=== PATIENT | female | born 1945 | race Caucasian/White ===

== ENCOUNTER 2018-01-16 08:51 | Observation (INO) | payer MEDICARE, OTHER ==
[2018-01-16] MEDS ORDERED: hydrALAzine 20 MG INJ IV (09:00)
[2018-01-16 09:19] LABS: ADD MAN DIFF? NO
[2018-01-16 09:21] LABS: WHITE BLOOD COUNT 6.6 10^3/ul (4.8-10.8)
[2018-01-16 09:21] LABS: BASOPHIL # 0.1 10^3/ul (0.0-0.1); BASOPHILS % 0.9 % (0.0-2.0); EOSINOPHILS # 0.5 10^3/ul (0.0-0.5); EOSINOPHILS % 7.5 % (0.0-7.0); HEMATOCRIT 41.2 % (37.0-47.0); HEMOGLOBIN 13.9 g/dl (12.0-16.0); LYMPHOCYTES # 2.7 10^3/ul (0.8-2.9); LYMPHOCYTES % 41.2 % (15.0-51.0); MEAN CORPUSCULAR HEMOGLOBIN 29.9 pg (29.0-33.0); MEAN CORPUSCULAR HGB CONC 33.7 g/dl (32.0-37.0); MEAN CORPUSCULAR VOLUME 88.6 fl (82.0-101.0); MEAN PLATELET VOLUME 9.9 fl (7.4-10.4); MONOCYTE # 0.5 10^3/ul (0.3-0.9); MONOCYTES % 6.9 % (0.0-11.0); NEUTROPHIL # 2.9 10^3/ul (1.6-7.5); NEUTROPHILS % 43.2 % (39.0-77.0); PLATELET COUNT 217 10^3/UL (140-415); RED BLOOD COUNT 4.65 10^6/ul (4.20-5.40); RED CELL DISTRIBUTION WIDTH 12.7 % (11.5-14.5)
[2018-01-16 09:40] LABS: ALANINE AMINOTRANSFERASE 18 IU/L (13-69); ALBUMIN 4.3 g/dl (3.3-4.9); ALBUMIN/GLOBULIN RATIO 1.38; ALKALINE PHOSPHATASE 89 IU/L (42-121); AMYLASE 146 U/L (11-123); ANION GAP 12 (8-16); ASPARTATE AMINO TRANSFERASE 22 IU/L (15-46); BILIRUBIN,INDIRECT 0.3 mg/dl (0-1.1); BILIRUBIN,TOTAL 0.3 mg/dl (0.2-1.3); BLOOD UREA NITROGEN 12 mg/dl (7-20); CALCIUM 9.3 mg/dl (8.4-10.2); CARBON DIOXIDE 23 mmol/L (21-31); CHLORIDE 107 mmol/L (97-110); CREATININE 0.51 mg/dl (0.44-1.00); GLUCOSE 198 mg/dl (70-220); LIPASE 330 U/L (23-300); POTASSIUM 4.4 mmol/L (3.5-5.1); SODIUM 138 mmol/L (135-144); TOTAL PROTEIN 7.4 g/dl (6.1-8.1)
[2018-01-16 09:43] LABS: INR 0.82; PROTIME 11.4 Sec (11.9-14.9); PT RATIO 0.9
[2018-01-16 09:52] LABS: TROPONIN-I < 0.010 ng/ml (0.000-0.120)
[2018-01-16] MEDS: LORAZEPAM 2 MG INJ IV (09:58)
[2018-01-16] MEDS: ONDANSETRON 4 MG INJ IV ×2 (09:58→13:31)
[2018-01-16] MEDS: SOD CHLORIDE 0.9% 1,000 ML IV (09:58)
[2018-01-16] MEDS: METOCLOPRAMIDE 10 MG INJ IV (10:57)
[2018-01-16] MEDS ORDERED: NACL 0.9% 3 ML SYG IV (12:00)
[2018-01-16] MEDS ORDERED: ONDANSETRON 4 MG INJ IV ×2 (12:00)
[2018-01-16] MEDS ORDERED: ACETAMINOPHEN 325 MG TAB PO ×2 (12:00)
[2018-01-16] MEDS: INSULIN ASPART [NOVOLOG] 3 ML PEN SC ×3 (14:34→21:00)
[2018-01-16] MEDS ORDERED: HYDROCODONE/APAP (5/325) TAB PO (15:00)
[2018-01-16 15:07] LABS: CREATINE KINASE 51 IU/L (23-200)
[2018-01-16 15:20] LABS: CK INDEX 8.1; CK-MB 4.13 ng/ml (0.0-2.4); TROPONIN-I < 0.010 ng/ml (0.000-0.120)
[2018-01-16] MEDS ORDERED: DEXTROSE 50% 50 ML SYRINGE IV ×2 (15:30)
[2018-01-16] MEDS ORDERED: GLUCOSE GEL 15 GRAM TUBE BUCCAL (15:30)
[2018-01-16] MEDS ORDERED: GLUCAGON 1 MG INJ IM (15:30)
[2018-01-16] MEDS ORDERED: GLUCOSE GEL 15 GRAM TUBE PO ×2 (15:30)
[2018-01-16] MEDS: BENAZEPRIL 40 MG TAB PO (16:08)
[2018-01-16] MEDS: INSULIN GLARGINE [LANTus] (100 UNITS/ML) SYG SC (20:00)
[2018-01-16] MEDS: ALPRAZOLAM 0.25 MG TAB PO (21:01)
[2018-01-16] MEDS: GABAPENTIN 100 MG CAP PO (21:01)
[2018-01-16] MEDS: ATORVASTATIN 20 MG TAB PO (21:01)
[2018-01-16] MEDS: DICLOFENAC (EC) 25 MG TAB PO (21:01)
[2018-01-16 22:58] LABS: CREATINE KINASE 42 IU/L (23-200)
[2018-01-16 23:09] LABS: CK-MB 3.77 ng/ml (0.0-2.4); TROPONIN-I < 0.010 ng/ml (0.000-0.120)
[2018-01-17] MEDS: ACCU-CHEK XX (02:00)
[2018-01-17 06:24] LABS: ADD MAN DIFF? NO
[2018-01-17 06:30] LABS: BASOPHIL # 0.1 10^3/ul (0.0-0.1); BASOPHILS % 0.8 % (0.0-2.0); EOSINOPHILS # 0.4 10^3/ul (0.0-0.5); EOSINOPHILS % 4.7 % (0.0-7.0); HEMATOCRIT 38.8 % (37.0-47.0); HEMOGLOBIN 12.7 g/dl (12.0-16.0); LYMPHOCYTES # 2.7 10^3/ul (0.8-2.9); LYMPHOCYTES % 31.4 % (15.0-51.0); MEAN CORPUSCULAR HGB CONC 32.7 g/dl (32.0-37.0); MEAN CORPUSCULAR VOLUME 88.6 fl (82.0-101.0); MEAN PLATELET VOLUME 10.2 fl (7.4-10.4); MONOCYTE # 0.5 10^3/ul (0.3-0.9); MONOCYTES % 5.8 % (0.0-11.0); NEUTROPHIL # 4.9 10^3/ul (1.6-7.5); NEUTROPHILS % 57.2 % (39.0-77.0); PLATELET COUNT 213 10^3/UL (140-415); RED BLOOD COUNT 4.38 10^6/ul (4.20-5.40); RED CELL DISTRIBUTION WIDTH 12.9 % (11.5-14.5)
[2018-01-17 06:30] LABS: WHITE BLOOD COUNT 8.5 10^3/ul (4.8-10.8)
[2018-01-17 06:41] LABS: HEMOGLOBIN A1C 8.1 % (0-5.9)
[2018-01-17 06:55] LABS: ANION GAP 11 (8-16); BLOOD UREA NITROGEN 12 mg/dl (7-20); CALCIUM 8.9 mg/dl (8.4-10.2); CARBON DIOXIDE 28 mmol/L (21-31); CHLORIDE 106 mmol/L (97-110); CHOL/HDL RATIO 5.4 RATIO; CHOLESTEROL 208 mg/dl (100-200); CREATININE 0.66 mg/dl (0.44-1.00); GLUCOSE 94 mg/dl (70-220); HDL CHOLESTEROL 38 mg/dl (33-92); LDL CHOLESTEROL,CALCULATED 130 mg/dl; MAGNESIUM 2.2 mg/dl (1.7-2.5); PHOSPHORUS 4.3 mg/dl (2.5-4.9); POTASSIUM 4.2 mmol/L (3.5-5.1); SODIUM 141 mmol/L (135-144); TRIGLYCERIDES 198 mg/dl (0-149)
[2018-01-17] MEDS: INSULIN ASPART [NOVOLOG] 3 ML PEN SC ×2 (08:00→12:28)
[2018-01-17] MEDS: GABAPENTIN 100 MG CAP PO ×2 (09:27→12:23)
[2018-01-17] MEDS: ASPIRIN 81 MG TAB PO (09:27)
[2018-01-17] MEDS: ALPRAZOLAM 0.25 MG TAB PO (09:27)
[2018-01-17] MEDS: BENAZEPRIL 40 MG TAB PO (09:27)
[2018-01-17] MEDS: DICLOFENAC (EC) 25 MG TAB PO (09:27)
== END 2018-01-17 15:36 | disposition home or self-care (01) ==
LOC: E/R 08:51 → 6WM 11:34
DX: I16.0 Hypertensive urgency (principal); F41.0 Panic disorder [episodic paroxysmal anxiety]; F41.9 Anxiety disorder, unspecified; R55 Syncope and collapse; I10 Essential (primary) hypertension; E78.5 Hyperlipidemia, unspecified; E11.40 Type 2 diabetes mellitus with diabetic neuropathy, unspecified; I77.9 Disorder of arteries and arterioles, unspecified
CPT/HCPCS: 36415; 70450; 74176; 80048; 80053; 80061; 82150; 82550; 82553; 82962; 83036; 83690; 83735; 84100; 84443; 84484; 85025; 85610; 85730; 93005; 93306; 93880; 96374; 96375; 99217; 99285-25; G0378

== ENCOUNTER 2018-08-02 23:57 | Emergency (ER) | payer MEDICARE, OTHER ==
[2018-08-03 00:50] LABS: ADD MAN DIFF? NO
[2018-08-03] MEDS: ONDANSETRON 4 MG INJ IV ×2 (00:51→03:12)
[2018-08-03] MEDS: METOCLOPRAMIDE 10 MG INJ IV (00:51)
[2018-08-03 00:52] LABS: BASOPHIL # 0.1 10^3/ul (0.0-0.1); BASOPHILS % 0.8 % (0.0-2.0); EOSINOPHILS # 0.4 10^3/ul (0.0-0.5); EOSINOPHILS % 4.2 % (0.0-7.0); HEMATOCRIT 40.2 % (37.0-47.0); HEMOGLOBIN 13.3 g/dl (12.0-16.0); LYMPHOCYTES # 1.6 10^3/ul (0.8-2.9); LYMPHOCYTES % 18.3 % (15.0-51.0); MEAN CORPUSCULAR HEMOGLOBIN 29.2 pg (29.0-33.0); MEAN CORPUSCULAR HGB CONC 33.1 g/dl (32.0-37.0); MEAN CORPUSCULAR VOLUME 88.2 fl (82.0-101.0); MEAN PLATELET VOLUME 10.1 fl (7.4-10.4); MONOCYTE # 0.4 10^3/ul (0.3-0.9); NEUTROPHIL # 6.5 10^3/ul (1.6-7.5); NEUTROPHILS % 72.6 % (39.0-77.0); PLATELET COUNT 193 10^3/UL (140-415); RED BLOOD COUNT 4.56 10^6/ul (4.20-5.40); RED CELL DISTRIBUTION WIDTH 12.4 % (11.5-14.5)
[2018-08-03 00:52] LABS: WHITE BLOOD COUNT 8.9 10^3/ul (4.8-10.8)
[2018-08-03] MEDS: ACETAMINOPHEN 325 MG TAB PO (00:52)
[2018-08-03] MEDS: SOD CHLORIDE 0.9% 500 ML IV (00:52)
[2018-08-03 01:13] LABS: INR 0.91; PARTIAL THROMBOPLASTIN TIME 25.5 Sec (23.0-35.0); PROTIME 12.4 Sec (11.9-14.9)
[2018-08-03 01:15] LABS: ANION GAP 10 (5-13); BLOOD UREA NITROGEN 14 mg/dl (7-20); CALCIUM 9.6 mg/dl (8.4-10.2); CARBON DIOXIDE 24 mmol/L (21-31); CHLORIDE 102 mmol/L (97-110); CREATININE 0.54 mg/dl (0.44-1.00); GLUCOSE 291 mg/dl (70-220); POTASSIUM 3.9 mmol/L (3.5-5.1); SODIUM 136 mmol/L (135-144)
[2018-08-03] MEDS: KETOROLAC 15 MG INJ IV (03:12)
[2018-08-03 03:27] LABS: TROPONIN-I < 0.012 ng/ml (0.000-0.120)
[2018-08-03 03:39] LABS: ALANINE AMINOTRANSFERASE 21 IU/L (13-69); ALBUMIN 4.3 g/dl (3.3-4.9); ALKALINE PHOSPHATASE 93 IU/L (42-121); ASPARTATE AMINO TRANSFERASE 24 IU/L (15-46); BILIRUBIN,INDIRECT 0.1 mg/dl (0-1.1); BILIRUBIN,TOTAL 0.1 mg/dl (0.2-1.3); LIPASE 467 U/L (23-300); TOTAL PROTEIN 7.1 g/dl (6.1-8.1)
== END 2018-08-03 05:22 | disposition home or self-care (01) ==
LOC: E/R 23:57
DX: I10 Essential (primary) hypertension (principal); R11.2 Nausea with vomiting, unspecified; E11.65 Type 2 diabetes mellitus with hyperglycemia; Z79.82 Long term (current) use of aspirin; Z79.84 Long term (current) use of oral hypoglycemic drugs
CPT/HCPCS: 36415; 71045; 80048; 80076; 83690; 84484; 85025; 85610; 85730; 93005; 96374; 96375; 96376; 99285-25

== ENCOUNTER 2018-09-20 11:46 | Emergency (ER) | payer MEDICARE, OTHER ==
[2018-09-20] MEDS ORDERED: IODIXANOL LOCM 100 ML BTL (12:05)
[2018-09-20] MEDS ORDERED: SOD CHLORIDE 0.9% 100 ML (12:05)
[2018-09-20] MEDS: METOCLOPRAMIDE 10 MG INJ IV (12:07)
[2018-09-20] MEDS: DIPHENHYDRAMINE 50 MG INJ IV (12:25)
[2018-09-20 12:39] LABS: ADD MAN DIFF? NO
[2018-09-20 12:41] LABS: BASOPHIL # 0.1 10^3/ul (0.0-0.1); BASOPHILS % 0.7 % (0.0-2.0); EOSINOPHILS # 0.6 10^3/ul (0.0-0.5); EOSINOPHILS % 6.8 % (0.0-7.0); HEMATOCRIT 35.7 % (37.0-47.0); LYMPHOCYTES # 2.6 10^3/ul (0.8-2.9); LYMPHOCYTES % 28.2 % (15.0-51.0); MEAN CORPUSCULAR HEMOGLOBIN 29.6 pg (29.0-33.0); MEAN CORPUSCULAR HGB CONC 33.6 g/dl (32.0-37.0); MEAN CORPUSCULAR VOLUME 87.9 fl (82.0-101.0); MEAN PLATELET VOLUME 9.8 fl (7.4-10.4); MONOCYTE # 0.5 10^3/ul (0.3-0.9); MONOCYTES % 5.9 % (0.0-11.0); NEUTROPHIL # 5.4 10^3/ul (1.6-7.5); NEUTROPHILS % 58.1 % (39.0-77.0); PLATELET COUNT 178 10^3/UL (140-415); RED BLOOD COUNT 4.06 10^6/ul (4.20-5.40); RED CELL DISTRIBUTION WIDTH 12.8 % (11.5-14.5)
[2018-09-20 12:41] LABS: WHITE BLOOD COUNT 9.2 10^3/ul (4.8-10.8)
[2018-09-20 12:58] LABS: ANION GAP 6 (5-13); BLOOD UREA NITROGEN 16 mg/dl (7-20); CALCIUM 8.9 mg/dl (8.4-10.2); CARBON DIOXIDE 24 mmol/L (21-31); CHLORIDE 106 mmol/L (97-110); CREATININE 0.51 mg/dl (0.44-1.00); GLUCOSE 249 mg/dl (70-220); POTASSIUM 3.7 mmol/L (3.5-5.1); SODIUM 136 mmol/L (135-144)
[2018-09-20 13:11] LABS: TROPONIN-I < 0.012 ng/ml (0.000-0.120)
[2018-09-20 13:14] LABS: INR 0.89; PROTIME 12.2 Sec (11.9-14.9)
[2018-09-20 13:15] LABS: PARTIAL THROMBOPLASTIN TIME 24.5 Sec (23.0-35.0)
== END 2018-09-20 15:26 | disposition home or self-care (01) ==
LOC: E/R 11:46
DX: R51 Headache (principal); R11.2 Nausea with vomiting, unspecified; I10 Essential (primary) hypertension; E11.9 Type 2 diabetes mellitus without complications; R07.9 Chest pain, unspecified; Z79.82 Long term (current) use of aspirin; Z79.84 Long term (current) use of oral hypoglycemic drugs
CPT/HCPCS: 36415; 70450; 70496; 70498; 71045; 80048; 84484; 85025; 85610; 85730; 93005; 96374; 96375; 99285-25